=== PATIENT | female | born 1960 | race Caucasian/White ===

== ENCOUNTER 2017-03-07 08:16 | Emergency (ER) | payer SELFPAY ==
[~2017-03-07] VITALS: Ht 154.9 cm; Wt 72.5 kg
[2017-03-07 08:18] VITALS: BP 126/80; PULSE 85; RESP 18; TEMP 98.8; O2SAT 97
--- NOTE | 2017-03-07 08:46 | PD ---
HPI Chief Complaint: Musculoskeletal Complaint Time Seen by Provider: 08:32 Travel History International Travel<30 days: No Contact w/Intl Traveler<30days: No Traveled to known affect area: No History of Present Illness HPI 57-year-old female presents to emergency department complaining of right ankle pain after a slip and fall initially. States she was walking on a slick surface slipped and fell. Patient is unable to describe her fall other than slipping and falling and her ankle hurting. Patient is having trouble walking. Patient denies crepitus, numbness, tingling. States she does have some "burning" over the dorsal aspect of the metatarsals. Patient does have full range of motion of ankle and foot but with pain. When walking patient describes moderate. When sitting pain is mild. She has no chronic medical history or medication use. [facility] Social History Alcohol Use: Yes (occ) Tobacco Use: Yes (1/2 pack a day ) Substance Use: No Allergies-Medications (Allergen,Severity, Reaction): Coded Allergies: No Known Allergies (Unverified , 03/07/17) Review of Systems Except as stated in HPI: all other systems reviewed are Neg Physical Exam Narrative GENERAL: Well-nourished, well-developed patient. SKIN: Focused skin assessment warm/dry. HEAD: Normocephalic. EYES: No scleral icterus. No injection or drainage. NECK: Supple, trachea midline. CARDIOVASCULAR: Regular rate and rhythm without murmurs, gallops, or rubs. RESPIRATORY: Breath sounds equal bilaterally. No accessory muscle use. MUSCULOSKELETAL: No cyanosis, or edema. Right ankle- ecchymosis over dorsal aspect of metatarsals, no obvious deformities, no crepitus. Pain with inversion, no pain with eversion. Neurovascular intact. Of note, patient describes the sensation over the dorsal aspect of her metatarsals as different than the rest of the foot but does have sensation. BACK: Nontender without obvious deformity. No CVA tenderness. Data Data Last Documented VS Vital Signs Date Time Temp Pulse Resp B/P (MAP) Pulse Ox O2 Delivery O2 Flow Rate FiO2 03/07/17 08:18 98.8 85 18 126/80 (95) 97 Room Air Orders Orders Ankle, Complete ([id number]) (03/07/17 ) Foot, Complete ([id number]) (03/07/17 ) Splinting (03/07/17 ) Mandatory Outpatient Referral (03/07/17 09:33) Ed Discharge Order (03/07/17 09:35) Crutches (03/07/17 10:15) [facility] Medical Decision Making Medical Screen Exam Complete: Yes Emergency Medical Condition: Yes Differential Diagnosis Right Ankle sprain versus strain versus fracture Right foot sprain versus contusion versus fracture Narrative Course 57-year-old female presents to emergency department complaining of right ankle pain after a slip and fall initially. States she was walking on a slick surface slipped and fell. Patient is unable to describe her fall other than slipping and falling and her ankle hurting. Patient is having trouble walking. Patient denies crepitus, numbness, tingling. States she does have some "burning" over the dorsal aspect of the metatarsals. Patient does have full range of motion of ankle and foot but with pain. When walking patient describes moderate. When sitting pain is mild. She has no chronic medical history or medication use. Vital signs stable Right ankle Ankle x-ray- no acute fracture Right Foot x-ray- Age-indeterminate, minimally displaced avulsion fracture fragment off of the dorsal aspect of the navicular. By report, patient's pain is more lateral and this may be old. No other fractures are demonstrated. Short leg splint for right foot and ankle. Mandatory referral place this patient does not have health insurance. Patient understands the importance of complying. Advised on care of foot and ankle. Crutches as needed. Diagnosis Primary Impression: Foot fracture Qualified Codes: S92.901A - Unspecified fracture of right foot, initial encounter for closed fracture Additional Impression: Ankle sprain Qualified Codes: S93.491A - Sprain of other ligament of right ankle, initial encounter Referrals: Technical Publications Writer Additional Instructions: Recommend Nikhil wrap or compression device to reduce swelling of the foot and ankle Use the splint when walking around and when being active. You may shower without the splint. Elevate leg whenever you're sitting or laying down. Use ice or heat for symptom relief. You may also use Tylenol and/or Motrin per package instructions If symptoms persist or worsen, return to the emergency department. Follow up with your primary care physician within 2 days. Disposition: 01 DISCHARGE HOME Condition: Stable Kiarra Gomez Mar 07, 2017 08:46
--- NOTE | 2017-03-07 09:11 | RADRPT ---
EXAM DATE/TIME: 03/07/2017 08:53 [facility] COMPARISON: No previous studies available for comparison. INDICATIONS : Complains of right ankle pain after fall. MEDICAL HISTORY : None. SURGICAL HISTORY : None. ENCOUNTER: Initial ACUITY: 2 days PAIN SCORE: 5/10 LOCATION: Right ankle FINDINGS: 2 x 6 mm ossific avulsion fragment seen off the dorsal navicular, age-indeterminate. Other bones are intact and normally aligned. Large heel spur and large distal Achilles enthesophyte. CONCLUSION: Small, mildly displaced dorsal avulsion fracture of the navicular, age-indeterminate. Please correlat e for point tenderness. Ankle and hindfoot otherwise intact. Paul Yee MD on March 07, 2017 at 9:07 Board Certified Radiologist. This report was verified electronically.
--- NOTE | 2017-03-07 09:13 | RADRPT ---
EXAM DATE/TIME: 03/07/2017 08:55 [facility] COMPARISON: No previous studies available for comparison. INDICATIONS : Complains of right foot pain after fall. MEDICAL HISTORY : None. SURGICAL HISTORY : None. ENCOUNTER: Initial ACUITY: 2 days PAIN SCORE: 5/10 LOCATION: Right foot FINDINGS: 2 x 5 mm ossific fragment seen dorsal to the navicular, age-indeterminate avulsion fracture. Other milly dagoberto of the right foot are intact and normally aligned. Anatomic variant os peroneum noted. There is a large heel spur and moderate to large enthesophyte of distal Achilles. [id number] osteoarthritis noted of the sesamoids. CONCLUSION: Age-indeterminate, minimally displaced avulsion fracture fragment off of the dorsal aspect of the deana icular. By report, patient's pain is more lateral and this may be old. No other fractures are demonst rated. Chronic findings as above. Paul Yee MD on March 07, 2017 at 9:10 Board Certified Radiologist. This report was verified electronically.
== END 2017-03-07 10:37 | disposition home or self-care (01) ==
LOC: NEPD 08:16
DX: S92.251A Displaced fracture of navicular [scaphoid] of right foot, initial encounter for closed fracture (principal); S93.491A Sprain of other ligament of right ankle, initial encounter; F17.200 Nicotine dependence, unspecified, uncomplicated; W01.0XXA Fall on same level from slipping, tripping and stumbling without subsequent striking against object, initial encounter
CPT/HCPCS: 29515; 73610; 73630; 99283; E0113